=== PATIENT | female | born 1945 | race Caucasian/White ===

== ENCOUNTER 2017-06-03 09:32 | Inpatient (IN) | payer MEDICAID ==
[~2017-06-03] VITALS: Ht 152.4 cm; Wt 55.3 kg
[2017-06-03] MEDS ORDERED: DIPHENHYDRAMINE 50MG/ML VIAL IV ONE (10:45)
[2017-06-03] MEDS ORDERED: ONDANSETRON HCL 4MG/2ML VIAL IV ONE (10:45)
[2017-06-03 10:50] LABS: INR 1.1; PARTIAL THROMBOPLASTIN TIME 23.3 sec (23.4-31.0); PROTHROMBIN TIME 11.3 sec (9.4-11.6)
[2017-06-03 10:56] LABS: CARBON DIOXIDE 25 mEq/L (21-32); CHLORIDE 107 mEq/L (98-107); TROPONIN I 0.12 ng/mL (0.00-0.04)
[2017-06-03 11:03] LABS: BASOPHILS % 0.4 % (0.0-2.0); EOSINOPHILS % 1.8 % (0.0-5.0); HEMATOCRIT. 38.3 % (36.0-48.0); HEMOGLOBIN. 12.6 g/dL (12.0-16.0); LYMPHOCYTES % 23.7 % (20.0-50.0); MEAN CORPUSCULAR HEMOGLOBIN 29.6 pg (28.0-32.0); MEAN CORPUSCULAR VOLUME 89.8 fL (81.0-99.0); MEAN PLATELET VOLUME 8.5 fl (7.4-10.4); MONOCYTES % 6.1 % (2.0-8.0); PLATELET 329 x1000/uL (130-400); RED BLOOD CELL COUNT 4.26 mill/uL (4.2-5.4); RED CELL DISTRIBUTION WIDTH 14.4 % (11.6-14.6)
[2017-06-03] MEDS ORDERED: ASPIRIN 325MG TABLET PO ONE (12:15)
[2017-06-03 16:00] VITALS: BP 163/57
[2017-06-03] MEDS ORDERED: POTASSIUM CHLORIDE 20MEQ TABLET SR PO NR (16:00)
[2017-06-03] MEDS ORDERED: ATOR40TA70 PO (16:27)
[2017-06-03] MEDS ORDERED: BENA20TA3 PO (16:27)
[2017-06-03] MEDS ORDERED: IPRATROPIUM/ALBUTEROL 0.5-3(2.5)MG/3ML NEB INH PRN (16:45)
[2017-06-03] MEDS ORDERED: MORPHINE SULFATE 10 MG/ML CPJ IV PRN (16:45)
[2017-06-03] MEDS ORDERED: DOCUSATE SODIUM 100MG CAPSULE PO PRN (16:45)
[2017-06-03] MEDS ORDERED: ACETAMINOPHEN 325MG TABLET PO PRN (16:45)
[2017-06-03] MEDS: ONDANSETRON HCL 4MG/2ML VIAL IV PRN (17:02)
[2017-06-03 20:00] VITALS: BP 145/64
[2017-06-03] MEDS: AMLODIPINE 5MG TABLET PO SCH (21:41)
[2017-06-03] MEDS: ATORVASTATIN CALCIUM 40MG TABLET PO SCH (21:41)
[2017-06-03] MEDS: MECLIZINE 12.5MG TABLET PO PRN (21:41)
[2017-06-04] VITALS (8 sets, daily range): BP systolic 115–147; BP diastolic 46–78
[2017-06-04] MEDS: ONDANSETRON HCL 4MG/2ML VIAL IV PRN ×5 (00:13→21:51)
[2017-06-04 07:04] LABS: CLARITY URINE CLEAR (CLEAR); COLOR URINE YELLOW (YELLOW); GLUCOSE URINE NEGATIVE (NEGATIVE); KETONES URINE 1+ (NEGATIVE); LEUKOCYTE ESTERASE URINE NEGATIVE (NEGATIVE); NITRITE URINE NEGATIVE (NEGATIVE); OCCULT BLOOD URINE NEGATIVE (NEGATIVE); PH URINE 5.5 (4.5-8.0); PROTEIN URINE NEGATIVE (NEGATIVE); SPECIFIC GRAVITY URINE 1.025 (1.005-1.030); UROBILINOGEN URINE 0.2 E.U./dL (0.2-1.0)
[2017-06-04 07:23] LABS: *AMPHETAMINES SCREEN URINE NEGATIVE (NEGATIVE); *BARBITURATES SCREEN URINE NEGATIVE (NEGATIVE); *BENZODIAZEPINES SCREEN URINE NEGATIVE (NEGATIVE); *COCAINE SCREEN URINE NEGATIVE (NEGATIVE); CANNABINOID URINE SCREEN NEGATIVE (NEGATIVE); METHADONE URINE SCREEN NEGATIVE (NEGATIVE); OPIATES URINE SCREEN PRESUMTIVE POSITIVE (NEGATIVE); PHENCYCLIDINE URINE SCREEN NEGATIVE (NEGATIVE)
[2017-06-04] MEDS: OMEPRAZOLE 20MG CAPSULE EXTENDED RELEASE PO SCH (07:40)
[2017-06-04 07:49] LABS: BASOPHILS % 0.1 % (0.0-2.0); HEMATOCRIT. 36.1 % (36.0-48.0); HEMOGLOBIN. 12.1 g/dL (12.0-16.0); MEAN CORPUSCULAR HEMOGLOBIN 29.7 pg (28.0-32.0); MEAN CORPUSCULAR VOLUME 88.8 fL (81.0-99.0); MEAN PLATELET VOLUME 8.6 fl (7.4-10.4); NEUTROPHILS % 77.9 % (40.0-76.0); PLATELET 296 x1000/uL (130-400); RED BLOOD CELL COUNT 4.06 mill/uL (4.2-5.4); RED CELL DISTRIBUTION WIDTH 14.4 % (11.6-14.6)
[2017-06-04] MEDS ORDERED: PNEUMOCOCCAL 23-VAL P-SAC VAC 0.5 ML IM ONE (08:00)
[2017-06-04] MEDS ORDERED: INFLUENZA VIRUS VACCINE 0.5ML SYR IM ONE (08:00)
[2017-06-04] MEDS: MECLIZINE 12.5MG TABLET PO PRN (08:38)
[2017-06-04] MEDS: AMLODIPINE 5MG TABLET PO SCH ×2 (09:00→21:49)
[2017-06-04] MEDS: LOSARTAN POTASSIUM 25 MG TABLET PO SCH (09:00)
[2017-06-04 09:42] LABS: CARBON DIOXIDE 27 mEq/L (21-32); CHLORIDE 105 mEq/L (98-107); HDL CHOLESTEROL 56 mg/dL (40-59); LDL CHOLESTEROL 203 mg/dL (5-100); TROPONIN I 0.23 ng/mL (0.00-0.04)
[2017-06-04] MEDS: SODIUM CHLORIDE 0.9% 1,000 ML IV SCH (11:20)
[2017-06-04] MEDS ORDERED: REGADENOSON 0.4 MG/5 ML IV SCH (11:30)
[2017-06-04] MEDS: MECLIZINE 25MG TABLET PO PRN (11:42)
[2017-06-04] MEDS ORDERED: PROMETHAZINE HCL 25MG TABLET PO PRN (12:00)
[2017-06-04] MEDS: DEXAMETHASONE 4MG/ML 1ML VIAL IV SCH (18:56)
[2017-06-04] MEDS: ATORVASTATIN CALCIUM 40MG TABLET PO SCH (21:49)
[2017-06-05] VITALS (12 sets, daily range): BP systolic 119–156; BP diastolic 52–79
[2017-06-05] MEDS: DEXAMETHASONE 4MG/ML 1ML VIAL IV SCH ×5 (01:02→23:40)
[2017-06-05] MEDS: SODIUM CHLORIDE 0.9% 1,000 ML IV SCH ×3 (01:02→23:41)
[2017-06-05 06:12] LABS: CHLORIDE 106 mEq/L (98-107)
[2017-06-05 06:28] LABS: CARBON DIOXIDE 23 mEq/L (21-32)
[2017-06-05 06:39] LABS: BASOPHILS % 0.1 % (0.0-2.0); HEMATOCRIT. 36.8 % (36.0-48.0); HEMOGLOBIN. 12.6 g/dL (12.0-16.0); LYMPHOCYTES % 11.3 % (20.0-50.0); MEAN CORPUSCULAR HEMOGLOBIN 30.4 pg (28.0-32.0); MEAN CORPUSCULAR VOLUME 88.7 fL (81.0-99.0); MONOCYTES % 1.6 % (2.0-8.0); PLATELET 308 x1000/uL (130-400); RED BLOOD CELL COUNT 4.14 mill/uL (4.2-5.4); RED CELL DISTRIBUTION WIDTH 14.3 % (11.6-14.6)
[2017-06-05] MEDS: OMEPRAZOLE 20MG CAPSULE EXTENDED RELEASE PO SCH (08:29)
[2017-06-05] MEDS: AMLODIPINE 5MG TABLET PO SCH ×2 (08:30→20:19)
[2017-06-05] MEDS: LOSARTAN POTASSIUM 25 MG TABLET PO SCH (08:30)
[2017-06-05] MEDS: CLOPIDOGREL 75MG TABLET PO SCH (08:30)
[2017-06-05] MEDS: ATORVASTATIN CALCIUM 40MG TABLET PO SCH (20:20)
[2017-06-06] VITALS (14 sets, daily range): BP systolic 116–158; BP diastolic 48–91
[2017-06-06] MEDS: DEXAMETHASONE 4MG/ML 1ML VIAL IV SCH ×3 (05:38→20:51)
[2017-06-06 06:53] LABS: BASOPHILS % 0.1 % (0.0-2.0); HEMATOCRIT. 38.6 % (36.0-48.0); HEMOGLOBIN. 12.7 g/dL (12.0-16.0); LYMPHOCYTES % 10.4 % (20.0-50.0); MEAN CORPUSCULAR HEMOGLOBIN 29.4 pg (28.0-32.0); MEAN CORPUSCULAR VOLUME 89.7 fL (81.0-99.0); MEAN PLATELET VOLUME 9.1 fl (7.4-10.4); MONOCYTES % 2.8 % (2.0-8.0); NEUTROPHILS % 86.7 % (40.0-76.0); PLATELET 327 x1000/uL (130-400); RED BLOOD CELL COUNT 4.31 mill/uL (4.2-5.4); RED CELL DISTRIBUTION WIDTH 13.8 % (11.6-14.6)
[2017-06-06 07:32] LABS: CARBON DIOXIDE 25 mEq/L (21-32)
[2017-06-06 07:58] LABS: CHLORIDE 108 mEq/L (98-107)
[2017-06-06] MEDS: OMEPRAZOLE 20MG CAPSULE EXTENDED RELEASE PO SCH (08:06)
[2017-06-06] MEDS: CLOPIDOGREL 75MG TABLET PO SCH (08:50)
[2017-06-06] MEDS: LOSARTAN POTASSIUM 25 MG TABLET PO SCH (08:50)
[2017-06-06] MEDS: AMLODIPINE 5MG TABLET PO SCH ×2 (08:51→20:51)
[2017-06-06] MEDS: ENOXAPARIN 40MG/0.4ML SYR SUBCUT SCH (16:21)
[2017-06-06] MEDS: ATORVASTATIN CALCIUM 40MG TABLET PO SCH (20:52)
[2017-06-07] VITALS (20 sets, daily range): BP systolic 113–164; BP diastolic 41–81
[2017-06-07 06:01] LABS: BASOPHILS % 0.1 % (0.0-2.0); HEMATOCRIT. 38.7 % (36.0-48.0); HEMOGLOBIN. 12.9 g/dL (12.0-16.0); LYMPHOCYTES % 13.7 % (20.0-50.0); MEAN CORPUSCULAR HEMOGLOBIN 29.5 pg (28.0-32.0); MEAN CORPUSCULAR VOLUME 88.4 fL (81.0-99.0); MONOCYTES % 7.2 % (2.0-8.0); PLATELET 335 x1000/uL (130-400); RED BLOOD CELL COUNT 4.38 mill/uL (4.2-5.4); RED CELL DISTRIBUTION WIDTH 14.3 % (11.6-14.6)
[2017-06-07 06:35] LABS: CARBON DIOXIDE 27 mEq/L (21-32); CHLORIDE 106 mEq/L (98-107)
[2017-06-07] MEDS: OMEPRAZOLE 20MG CAPSULE EXTENDED RELEASE PO SCH (07:44)
[2017-06-07] MEDS: LOSARTAN POTASSIUM 25 MG TABLET PO SCH (09:29)
[2017-06-07] MEDS: DEXAMETHASONE 4MG/ML 1ML VIAL IV SCH ×2 (09:29→21:31)
[2017-06-07] MEDS: AMLODIPINE 5MG TABLET PO SCH ×2 (09:30→21:31)
[2017-06-07] MEDS: ENOXAPARIN 40MG/0.4ML SYR SUBCUT SCH (09:31)
[2017-06-07] MEDS: CLOPIDOGREL 75MG TABLET PO SCH (11:30)
[2017-06-07] MEDS: ATORVASTATIN CALCIUM 40MG TABLET PO SCH (21:31)
[2017-06-08] VITALS (16 sets, daily range): BP systolic 92–134; BP diastolic 38–75
[2017-06-08 06:46] LABS: BASOPHILS % 0.2 % (0.0-2.0); HEMATOCRIT. 40.1 % (36.0-48.0); HEMOGLOBIN. 13.4 g/dL (12.0-16.0); LYMPHOCYTES % 16.1 % (20.0-50.0); MEAN CORPUSCULAR HEMOGLOBIN 29.3 pg (28.0-32.0); MEAN CORPUSCULAR VOLUME 87.9 fL (81.0-99.0); MEAN PLATELET VOLUME 8.7 fl (7.4-10.4); MONOCYTES % 5.4 % (2.0-8.0); NEUTROPHILS % 78.3 % (40.0-76.0); PLATELET 355 x1000/uL (130-400); RED BLOOD CELL COUNT 4.57 mill/uL (4.2-5.4); RED CELL DISTRIBUTION WIDTH 14.2 % (11.6-14.6)
[2017-06-08 08:15] LABS: CARBON DIOXIDE 26 mEq/L (21-32); CHLORIDE 106 mEq/L (98-107)
[2017-06-08] MEDS: AMLODIPINE 5MG TABLET PO SCH ×2 (09:00→20:44)
[2017-06-08] MEDS: LOSARTAN POTASSIUM 25 MG TABLET PO SCH (09:00)
[2017-06-08] MEDS: OMEPRAZOLE 20MG CAPSULE EXTENDED RELEASE PO SCH (09:18)
[2017-06-08] MEDS: MECLIZINE 25MG TABLET PO PRN (09:18)
[2017-06-08] MEDS: CLOPIDOGREL 75MG TABLET PO SCH (09:19)
[2017-06-08] MEDS: DEXAMETHASONE 4MG/ML 1ML VIAL IV SCH (09:19)
[2017-06-08] MEDS: ENOXAPARIN 40MG/0.4ML SYR SUBCUT SCH (09:20)
[2017-06-08] MEDS ORDERED: BISACODYL 10MG SUPP PR NR (10:15)
[2017-06-08] MEDS: LACTULOSE 20G/30ML UDC PO SCH ×4 (11:03→21:00)
[2017-06-08] MEDS: DOCUSATE SODIUM 100MG CAPSULE PO SCH (17:00)
[2017-06-08] MEDS: ATORVASTATIN CALCIUM 40MG TABLET PO SCH (20:44)
[2017-06-08] MEDS: POLYETHYLENE GLYCOL 3350 (17GM) 1 DOSE PACK PO SCH (20:45)
[2017-06-09] VITALS (15 sets, daily range): BP systolic 107–134; BP diastolic 50–67
[2017-06-09 06:12] LABS: BASOPHILS % 0.1 % (0.0-2.0); EOSINOPHILS % 0.4 % (0.0-5.0); HEMATOCRIT. 41.4 % (36.0-48.0); HEMOGLOBIN. 13.7 g/dL (12.0-16.0); MEAN CORPUSCULAR HEMOGLOBIN 29.3 pg (28.0-32.0); MEAN CORPUSCULAR VOLUME 88.9 fL (81.0-99.0); MEAN PLATELET VOLUME 9.2 fl (7.4-10.4); MONOCYTES % 9.2 % (2.0-8.0); NEUTROPHILS % 55.3 % (40.0-76.0); PLATELET 383 x1000/uL (130-400); RED BLOOD CELL COUNT 4.66 mill/uL (4.2-5.4); RED CELL DISTRIBUTION WIDTH 13.9 % (11.6-14.6)
[2017-06-09 07:18] LABS: CARBON DIOXIDE 25 mEq/L (21-32); CHLORIDE 106 mEq/L (98-107)
[2017-06-09] MEDS: DOCUSATE SODIUM 100MG CAPSULE PO SCH ×2 (09:00→17:00)
[2017-06-09] MEDS: AMLODIPINE 5MG TABLET PO SCH ×2 (09:00→20:28)
[2017-06-09] MEDS: LOSARTAN POTASSIUM 25 MG TABLET PO SCH (09:22)
[2017-06-09] MEDS: PREDNISONE 20MG TABLET PO SCH (09:22)
[2017-06-09] MEDS: MECLIZINE 25MG TABLET PO PRN (09:23)
[2017-06-09] MEDS: CLOPIDOGREL 75MG TABLET PO SCH (09:23)
[2017-06-09] MEDS: OMEPRAZOLE 20MG CAPSULE EXTENDED RELEASE PO SCH (09:23)
[2017-06-09] MEDS ORDERED: POTASSIUM CHLORIDE 20MEQ TABLET SR PO SCH (09:30)
[2017-06-09] MEDS: ENOXAPARIN 40MG/0.4ML SYR SUBCUT SCH (09:31)
[2017-06-09] MEDS: POLYETHYLENE GLYCOL 3350 (17GM) 1 DOSE PACK PO SCH (20:27)
[2017-06-09] MEDS: ATORVASTATIN CALCIUM 40MG TABLET PO SCH (20:28)
[2017-06-10] VITALS (12 sets, daily range): BP systolic 99–131; BP diastolic 39–71
[2017-06-10 06:41] LABS: BASOPHILS % 0.1 % (0.0-2.0); EOSINOPHILS % 0.6 % (0.0-5.0); HEMATOCRIT. 41.6 % (36.0-48.0); LYMPHOCYTES % 38.6 % (20.0-50.0); MEAN CORPUSCULAR HEMOGLOBIN 30.2 pg (28.0-32.0); MEAN CORPUSCULAR VOLUME 89.3 fL (81.0-99.0); MEAN PLATELET VOLUME 8.7 fl (7.4-10.4); MONOCYTES % 8.2 % (2.0-8.0); NEUTROPHILS % 52.5 % (40.0-76.0); PLATELET 360 x1000/uL (130-400); RED BLOOD CELL COUNT 4.66 mill/uL (4.2-5.4); RED CELL DISTRIBUTION WIDTH 14.4 % (11.6-14.6)
[2017-06-10 08:11] LABS: CARBON DIOXIDE 27 mEq/L (21-32); CHLORIDE 105 mEq/L (98-107)
[2017-06-10] MEDS: ENOXAPARIN 40MG/0.4ML SYR SUBCUT SCH (08:40)
[2017-06-10] MEDS: DOCUSATE SODIUM 100MG CAPSULE PO SCH ×2 (08:41→17:04)
[2017-06-10] MEDS: PREDNISONE 20MG TABLET PO SCH (08:41)
[2017-06-10] MEDS: CLOPIDOGREL 75MG TABLET PO SCH (08:41)
[2017-06-10] MEDS: FAMOTIDINE 20MG TABLET PO SCH ×2 (08:42→21:00)
[2017-06-10] MEDS: AMLODIPINE 5MG TABLET PO SCH ×2 (08:42→21:00)
[2017-06-10] MEDS: LOSARTAN POTASSIUM 25 MG TABLET PO SCH (08:42)
[2017-06-10] MEDS: POLYETHYLENE GLYCOL 3350 (17GM) 1 DOSE PACK PO SCH (20:59)
[2017-06-10] MEDS: ATORVASTATIN CALCIUM 40MG TABLET PO SCH (21:00)
[2017-06-11] VITALS (9 sets, daily range): BP systolic 107–143; BP diastolic 55–73
[2017-06-11] MEDS: CLOPIDOGREL 75MG TABLET PO SCH (09:44)
[2017-06-11] MEDS: FAMOTIDINE 20MG TABLET PO SCH (09:45)
[2017-06-11] MEDS: PREDNISONE 20MG TABLET PO SCH (09:45)
[2017-06-11] MEDS: LOSARTAN POTASSIUM 25 MG TABLET PO SCH (09:45)
[2017-06-11] MEDS: DOCUSATE SODIUM 100MG CAPSULE PO SCH (09:45)
[2017-06-11] MEDS: AMLODIPINE 5MG TABLET PO SCH (09:45)
[2017-06-11] MEDS: ENOXAPARIN 40MG/0.4ML SYR SUBCUT SCH (09:46)
== END 2017-06-11 15:00 | DRG 45 ==
LOC: ER 09:32 → 7WST 12:20 → ENRESERV 12:57 → CANRESERV 12:57 → ENRESERV 14:13 → 5EST 06-04 21:21
PROVIDERS: ADMIT Family Medicine Adult Medicine; ATTEND Family Medicine Adult Medicine
DX: I63.9 Cerebral infarction, unspecified (principal); J84.10 Pulmonary fibrosis, unspecified; J44.9 Chronic obstructive pulmonary disease, unspecified; I10 Essential (primary) hypertension; E78.5 Hyperlipidemia, unspecified; E87.6 Hypokalemia; E78.00 Pure hypercholesterolemia, unspecified; D72.829 Elevated white blood cell count, unspecified; R27.0 Ataxia, unspecified; R73.9 Hyperglycemia, unspecified; Z90.49 Acquired absence of other specified parts of digestive tract; Z79.01 Long term (current) use of anticoagulants; Z79.899 Other long term (current) drug therapy
CPT/HCPCS: 36415; 70450; 70544; 70553; 71010; 80048; 80053; 80061; 80305; 81003; 83036; 83735; 84484; 85025; 85610; 85730; 87086; 92610; 93005; 93306; 93880; 93970; 96374; 96375; 97112; 97116; 97162; 97166; 97530; 97535; 99285; J1100; J1200; J1650; J2270; J2405; J7030; J7512; J8597; Q0169